=== PATIENT | female | born 1995 | race Asian ===

== ENCOUNTER 2017-11-06 23:47 | Emergency (ER) | payer OTHER ==
[~2017-11-06] VITALS: Ht 162.6 cm; Wt 48.5 kg
--- NOTE | 2017-11-06 23:47 | NUR ---
RYANNE GALVEZ ALS TO ER BED 09
[2017-11-06 23:55] VITALS: BP 112/75
[2017-11-06] MEDS ORDERED: ONDANSETRON 4 MG/2 ML VIAL IVP ONE (23:55)
[2017-11-06] MEDS ORDERED: NACL 0.9% 1,000 ML IV ONE (23:55)
--- NOTE | 2017-11-06 23:55 | NUR ---
21/F BIBA. PER C[facility] FIRE, [facility]. PT AOX2, ABLE TO ANSWER SIMPLE QUESTIONS, DELAYED AND MUMBLED SPEECH, BEDREST AT THIS TIME. PT PRESENTS WITH NAUSEA AND VOMITING. SKIN IS INTACT, PINK/WARM/DRY; LUNGS CLEAR BL, BREATHING UNLABORED; HR EVEN AND REGULAR, BL PERIPHERAL PULSES PRESENT; BS ACTIVE X4, NO TENDERNESS TO PALPATION; VSS; PATIENT POSITIONED ON SIDE LYING POSITION; HOB ELEVATED; BEDRAILS UP X2; BED DOWN.
[2017-11-07 00:26] LABS: BASOPHILS # (AUTO) 0.1 K/uL (0.00-0.22); BASOPHILS % (AUTO) 0.6 % (0.0-2.0); EOSINOPHILS % (AUTO) 0.5 % (0.0-4.0); HEMATOCRIT 44.8 % (36-48); HEMOGLOBIN 14.8 g/dL (12.0-16.0); LYMPHOCYTES # (AUTO) 2.7 K/uL (2.5-16.5); LYMPHOCYTES % (AUTO) 29.9 % (20.5-51.1); MEAN CORPUSCULAR HEMOGLOBIN 29 pg (27-31); MEAN CORPUSCULAR HGB CONC 33 g/dL (33-37); MEAN CORPUSCULAR VOLUME 85.9 fL (80-94); MONOCYTES # (AUTO) 0.4 K/uL (0.8-1.0); MONOCYTES % (AUTO) 4.8 % (1.7-9.3); NEUTROPHILS # (AUTO) 5.9 K/uL (1.8-7.7); NEUTROPHILS % (AUTO) 64.2 % (42.2-75.2); PLATELET COUNT (AUTO) 292 K/uL (140-450); RED BLOOD CELL COUNT(AUTO) 5.21 MIL/uL (4.20-5.40); RED CELL DISTRIBUTION WIDTH 13.2 % (11.6-13.7); WHITE BLOOD COUNT (AUTO) 9.1 K/uL (4.8-10.8)
[2017-11-07] MEDS ORDERED: METOCLOPRAMIDE 10 MG/2 ML INJ VIAL IVP ONE (00:35)
[2017-11-07 00:54] LABS: ANION GAP 17.5 (8-16); CARBON DIOXIDE 24.5 mmol/L (21-32); CREATININE 0.8 mg/dL (0.6-1.3)
[2017-11-07 00:59] LABS: ALBUMIN 4.4 g/dL (3.4-5.0); TOTAL BILIRUBIN 0.5 mg/dL (0.0-1.0)
[2017-11-07] MEDS ORDERED: POTASSIUM CHLORIDE 10 MEQ TABER PO ONE (01:10)
[2017-11-07] MEDS ORDERED: ONDANSETRON 4 MG/2 ML VIAL IVP ONE (01:10)
[2017-11-07] MEDS ORDERED: POTASSIUM CHL 40 MEQ/ D5-1/2NS 1,000 ML IV ONE (01:30)
--- NOTE | 2017-11-07 01:30 | NUR ---
PT UNABLE TO COLLECT URINE AT THIS TIME, WILL ATTEMPT TO COLLECT LATER
--- NOTE | 2017-11-07 01:32 | NUR ---
PT WITH PERSISTENT N/V DESPITE MEDS. INSTRUCTED BY MD TO HOLD PO KDURR AT THIS TIME, ORDERS PENDING, WILL CARRY OUT.
--- NOTE | 2017-11-07 03:01 | NUR ---
PT RESTING COMFORTABLY IN BED, RR EVEN AND UNLABORED. PT ABLE TO COLLECT URINE AT THIS TIME, EXHIBIT DISPLAY REPRESENTATIVE SENT SAMPLE TO LAB.
[2017-11-07 03:41] LABS: BARBITURATE, URINE NEG. ng/ml (NEG <=200); BENZODIAZEPINE, URINE NEG. ng/mL (NEG <=200); CANNABINOID, URINE NEG. ng/mL (NEG <=50); COCAINE, URINE NEG. ng/mL (NEG <=300); OPIATE, URINE NEG. ng/mL (NEG <=2000); PHENCYCLIDINE SCREEN,URINE NEG. ng/mL (NEG <=25)
[2017-11-07 04:21] VITALS: BP 110/63
== END 2017-11-07 04:21 | disposition home or self-care (01) ==
LOC: MED 23:47
DX: F10.129 Alcohol abuse with intoxication, unspecified (principal); E87.6 Hypokalemia; Z88.5 Allergy status to narcotic agent
CPT/HCPCS: 36415; 80053; 80305; 81025; 83690; 85025; 96361; 96365; 96366; 96375; 99285; G0482; J2405; J2765; 99284